=== PATIENT | male | born 1995 | race African-American/Black ===

== ENCOUNTER 2018-10-19 04:01 | Emergency (ER) | payer SELFPAY ==
[2018-10-19] MEDS ORDERED: IPRATROPIUM/ALBUTEROL 0.5-2.5 MG/3 ML AMPUL NEB ONE ×2 (04:19→05:27)
[2018-10-19] MEDS ORDERED: ONDANSETRON 4 MG TAB.RAPDIS ONE (04:35)
[2018-10-19] MEDS ORDERED: METHYLPREDNISOLONE INJ 125 MG/2 ML SDV IV ONE (05:27)
--- NOTE | 2018-10-19 05:28 | ER Document Report ---
ED General - General Chief Complaint: Shortness Of Breath Stated Complaint: DIFFICULTY BREATHING Time Seen by Provider: 10/19/18 04:13 Notes: Patient is a 23-year-old male who presents to the emergency department with a chief complaint of shortness of breath. His symptoms started around 1:00 this morning. He has asthma and he was exposed to cigarette smoke, which triggered his asthma. He states he has a hard time getting good deep breath in. He notes some wheezing. He does not have his rescue inhaler, because he is visiting from out of town. - Related Data Allergies/Adverse Reactions: No Known Allergies Allergy (Unverified 10/19/18 06:17) Past Medical History - Social History Smoking Status: Never Smoker Family History: Reviewed & Not Pertinent Review of Systems - Review of Systems Notes: REVIEW OF SYSTEMS: CONSTITUTIONAL : Denies recent illness. Denies recent unintentional weight loss. Denies fever, chills, or sweats. EENT: Denies eye, ear, throat, or mouth pain, discharge, or symptoms. Denies nasal or sinus congestion. CARDIOVASCULAR: Denies chest pain. RESPIRATORY: See HPI GASTROINTESTINAL: Denies nausea, vomiting, and diarrhea. Denies abdominal pain. Denies constipation. GENITOURINARY: Denies difficulty urinating, burning, blood in urine, urgency or frequency. MUSCULOSKELETAL: Denies neck and back pain. Denies joint pain or swelling. SKIN: Denies rash, itchiness, or lesions HEMATOLOGIC : Denies easy bruising or bleeding. LYMPHATIC: Denies swollen, painful, enlarged glands. NEUROLOGICAL: Denies no numbness or tingling denies weakness. Denies headache. Denies altered mental status. Denies alteration in speech. PSYCHIATRIC: Denies stress, anxiety, alteration in sleep patterns, or depression. All other systems reviewed and negative. Physical Exam - Vital signs Vitals: Temp Pulse Resp BP Pulse Ox 97.9 F 92 28 H 134/51 H 93 10/19/18 04:20 10/19/18 04:20 10/19/18 04:20 10/19/18 04:20 10/19/18 04:20 - Notes Notes: PHYSICAL EXAMINATION: GENERAL: Appears well, healthy, well-nourished, no acute distress. HEAD: Normocephalic, atraumatic. EYES: PERRL, conjunctiva normal, all extraocular movements intact, sclera nonicteric ENT: Moist mucous membranes. NECK: Supple, no noticeable swelling, redness, rash. Normal range of motion. LUNGS: Inspiratory and expiratory wheezes noted throughout all lung kwok. CARDIOVASCULAR: S1-S2, regular rate, regular rhythm. Radial pulses 2+, normal. ABDOMEN: Normoactive bowel sounds. Soft, nontender, no guarding, no rebound tenderness, and no masses palpated. EXTREMITIES: Normal strength and range of motion, no pitting or edema. No cyanosis. NEUROLOGICAL: Moves all extremities upon command. Strength 5/5 in all extremities. PSYCH: Normal mood, normal affect. SKIN: Warm, dry. No rash, lesions, ulcerations noted. Normal skin turgor. Course - Re-evaluation Re-evalutation: 10/19/18 05:30 The patient still has inspiratory and expiratory wheezes after his double dose of a DuoNeb treatment. I will order an IV and he will receive Solu-Medrol, magnesium, and another DuoNeb treatment. 10/19/18 06:36 I have reevaluated the patient he has an oxygen saturation of 98% on room air. He does have very mild wheezes, but is much better than before. I will send him home with an albuterol inhaler and a spacer. He will also go home with a dose of steroids. Follow-up precautions were given. Verbal discharge instructions were given to the patient. They verbalized understanding. They are stable for discharge. 10/19/18 09:13 I realized that I had not printed the patient's prednisone and prescription. I attempted to call him, but the mailbox was full. Will attempt to call back later. - Vital Signs Vital signs: Temp Pulse Resp BP Pulse Ox 98.1 F 90 16 131/69 H 97 10/19/18 06:47 10/19/18 06:47 10/19/18 06:47 10/19/18 06:47 10/19/18 06:47 Discharge - Discharge Clinical Impression: Asthma exacerbation Qualifiers: Asthma severity: moderate Asthma persistence: unspecified Qualified Code(s): J45.901 - Unspecified asthma with (acute) exacerbation Condition: Stable Disposition: HOME, SELF-CARE Additional Instructions: You were seen for an asthma exacerbation. Your symptoms improved with treatment here in the emergency department. However, it is very important that you return to the emergency department if you have worsening shortness of breath. You are also being sent home on a five-day course of steroids that you should start taking tomorrow. You are also being sent home with an inhaler. Please use your inhaler every 4-6 hours as needed for shortness of breath. Please make sure you have a rescue inhaler with you at all times. Please stay away from any of your asthma triggers, especially cigarette smoke. Please also follow closely with your primary care physician. you should also return to emergency department if you develop fever greater than 101, persistent cough, persistent vomiting, pass out, or any other symptoms that are concerning to you. Prescriptions: Prednisone [Deltasone 20 mg Tablet] 3 tab PO DAILY 5 Days #15 tablet
[2018-10-19] MEDS: MAGNESIUM SULFATE/D5W 1 GM/100 ML RTUPB IV SCH ×2 (05:52→06:11)
[2018-10-19] MEDS ORDERED: ALBUTEROL SULFATE HFA (90 MCG/PUFF) 8 GM MDI (1 MDI/ER DISP) IH PRN (06:35)
[2018-10-19 06:48] VITALS: BP 131/69
== END 2018-10-19 06:48 | disposition home or self-care (01) ==
LOC: ER 04:01
DX: J45.901 Unspecified asthma with (acute) exacerbation (principal); Z77.22 Contact with and (suspected) exposure to environmental tobacco smoke (acute) (chronic)
CPT/HCPCS: 94640 ×2; 99283; 96375; 96365; S0119; J2930; J3475; J3490; J7620